=== PATIENT | female | born 1995 | race Caucasian/White ===

== ENCOUNTER 2016-10-04 19:31 | Emergency (ER) | payer MEDICAID ==
--- NOTE | ~2016-10-04 | ER ---
PATIENT'S NAME: ZANDRA LOYD [facility] AGE: 21 Y [address] ROOM: [place] [id number] LOCATION: [facility] ADMIT DATE: 10/04/2016 ER/Outpatient Report DISCHARGE DATE: 10/04/2016 FAMILY PHYSICIAN: Ryland Salazar MD ATTENDING PHYSICIAN: Aung Dc Time of Arrival: 1931 hours. Time of Evaluation: 1935 hours. CHIEF COMPLAINT: Laceration to right hand. HISTORY OF PRESENT ILLNESS: This is a 21-year-old female who presents to the ER, who states she was bit by her pet rat on her left hand and it caused her to hit her right hand on the pets glass tank. She sustained a small laceration to the palm of her hand. She states that she is up-to-date on her tetanus shot. The patient denies any other problems at this time. ALLERGIES: PENICILLIN. MEDICATIONS: Please see medication list nurse's notes. PAST MEDICAL HISTORY: Depression. PAST SURGERIES: D and C. SOCIAL HISTORY: Denies smoking, drug, or alcohol use. REVIEW OF SYSTEMS: CONSTITUTIONAL: Denies any change in weight or fatigue. MUSCULOSKELETAL: No weakness or myalgias. HEMATOLOGIC: No easy bruising or bleeding. SKIN: Has a laceration to the palm of her right hand and a small abrasion to her left hand. PHYSICAL EXAMINATION: VITAL SIGNS: Height 5 feet and 4 inches stated, weight 84.6 kg taken, blood pressure is 114/73, pulse 73, respirations 18, and saturations 98% on room air. Bee Coma Score is 15. PATIENT'S NAME: ZANDRA LOYD [facility] AGE: 21 Y [address] ROOM: [place], [place] [address] LOCATION: [facility] ADMIT DATE: 10/04/2016 ER/Outpatient Report DISCHARGE DATE: 10/04/2016 FAMILY PHYSICIAN: Ryland Salazar MD ATTENDING PHYSICIAN: Aung Dc GENERAL: Alert, calm, well-developed, 21-year-old, in no acute distress. EXTREMITIES: No clubbing or cyanosis. She does have full range of motion of all limbs. SKIN: She has a superficial cut to the palm of her right hand. It measures 1.5 cm. She also has a small abrasion noted to the knuckle of her left hand where she was bitten by her rat. LABORATORY DATA AND X-RAYS: None were done. IMPRESSION: 1. A 1.5 cm superficial laceration to the palm of her right hand. 2. Less than 0.5 cm scratch to the left knuckle from rat bite. ASSESSMENT AND PLAN: We did cleanse the areas and I repaired the palm of her right hand with Dermabond skin glue. The patient did tolerate this well. I advised Tylenol or ibuprofen as needed. We will send her home with the skin glue handout. They need to have the rat evaluated. The patient understands and agrees with care. BA THOMAS PA-C FOR MD JUANITA PRICE/inna /[id number] d: 10/04/16 2347 t: 10/08/16 1805, OUTPATIENT REPORT
[~2016-10-04 19:31] MED LIST: FEOSOL325 MG PO; FLAGYL500 MG PO; MONONESSA 28 T1 EACH PO; MOTRIN800 MG PO; NORCO 5-325 MG1 TAB PO; PRENATAL 1+1)(P1 TAB PO; SURFAK240 MG PO; TYLENOL EXTRA500 MG PO; ZOLOFT100 MG PO
== END 2016-10-04 19:49 | disposition disaster alternative care site (69) ==
LOC: GACC 19:31
PROC: 0HQFXZZ Repair Right Hand Skin, External Approach (ICD-10-PCS; principal; 2016-10-04)
DX: S61.411A Laceration without foreign body of right hand, initial encounter (principal); S60.512A Abrasion of left hand, initial encounter; F32.9 Major depressive disorder, single episode, unspecified; Z88.0 Allergy status to penicillin; W22.8XXA Striking against or struck by other objects, initial encounter; W53.11XA Bitten by rat, initial encounter